=== PATIENT | female | born 1990 | race Two or more races ===

== ENCOUNTER 2021-10-09 11:44 | Emergency (ER) | payer OTHER ==
[~2021-10-09] VITALS: Ht 160 cm; Wt 56.7 kg
[2021-10-09] MEDS ORDERED: IBUPROFEN200 MG PO (12:13)
[2021-10-09] MEDS ORDERED: ACETAMINOPHEN-1 EAC4 PO (12:13)
[2021-10-09] MEDS ORDERED: ACETAMINOPHEN 325 MG TAB PO ONE (12:15)
[2021-10-09] MEDS ORDERED: ACETAMINOPHEN 325 MG TAB ONE (12:17)
== END 2021-10-09 13:16 | disposition home or self-care (01) ==
LOC: FSED 11:46
DX: S92.425A Nondisplaced fracture of distal phalanx of left great toe, initial encounter for closed fracture (principal); W22.8XXA Striking against or struck by other objects, initial encounter; Y92.488 Other paved roadways as the place of occurrence of the external cause; E03.9 Hypothyroidism, unspecified
CPT/HCPCS: 99284